=== PATIENT | female | born 1975 | race Caucasian/White ===

== ENCOUNTER 2022-10-04 20:30 | Emergency (ER) | payer BC ==
[~2022-10-04] VITALS: Ht 162.6 cm; Wt 77.1 kg
[2022-10-04 20:40] VITALS: BP 130/74
--- NOTE | 2022-10-04 20:43 | NUR ---
TO LOBBY A/W BED AMBULATORY
[2022-10-04] MEDS ORDERED: KETOROLAC 30 MG/ML VIAL IM ONE (21:00)
[2022-10-04 21:19] LABS: APPEARANCE,URINE CLEAR (CLEAR); BILIRUBIN,URINE NEGATIVE (NEGATIVE); BLOOD, URINE 2+ (NEGATIVE); COLOR,URINE YELLOW (YELLOW); LEUKOCYTE ESTERASE ,URINE NEGATIVE (NEGATIVE); NITRITE, URINE NEGATIVE (NEGATIVE); UGLUCOSE NEGATIVE (NEGATIVE)
--- NOTE | 2022-10-04 21:26 | NUR ---
URINE IN LAB
[2022-10-04 21:37] LABS: RBC,URINE NONE SEEN /HPF (0-5); WBC,URINE NONE SEEN /HPF (0-5)
--- NOTE | 2022-10-04 21:44 | NUR ---
47YR OLD FEMALE BIB SELF C/O ABD PAIN X2DAYS . DENIES V/D. DENIES SOB OR CP. BURNING WITH URINTION . LOWER ABD PAIN NON RADIATING. PT MARTINIQUAIS SPEAKING ONLY. URINE OBTAINED AND SENT TO LAB NKDA NO MED HX
[2022-10-04 22:08] LABS: BASOPHILS # (AUTO) 0.1 K/uL (0.00-0.22); BASOPHILS % (AUTO) 0.5 % (0.0-2.0); EOSINOPHILS # (AUTO) 0.3 K/uL (0-0.4); EOSINOPHILS % (AUTO) 2.8 % (0.0-4.0); HEMATOCRIT 36.4 % (36-48); HEMOGLOBIN 12.4 g/dL (12.0-16.0); LYMPHOCYTES # (AUTO) 2.4 K/uL (2.5-16.5); LYMPHOCYTES % (AUTO) 22.4 % (20.5-51.1); MEAN CORPUSCULAR HEMOGLOBIN 28 pg (27-31); MEAN CORPUSCULAR HGB CONC 34 g/dL (33-37); MEAN CORPUSCULAR VOLUME 81.1 fL (80-94); MONOCYTES # (AUTO) 0.7 K/uL (0.8-1.0); MONOCYTES % (AUTO) 6.7 % (1.7-9.3); NEUTROPHILS # (AUTO) 7.3 K/uL (1.8-7.7); NEUTROPHILS % (AUTO) 67.6 % (42.2-75.2); PLATELET COUNT (AUTO) 243 K/uL (140-450); RED BLOOD CELL COUNT(AUTO) 4.49 MIL/uL (4.20-5.40); RED CELL DISTRIBUTION WIDTH 13.5 % (11.6-13.7); WHITE BLOOD COUNT (AUTO) 10.8 K/uL (4.8-10.8)
[2022-10-04 22:30] LABS: ALBUMIN 3.7 g/dL (3.4-5.0); ANION GAP 11.9 (8-16); CARBON DIOXIDE 29.3 mmol/L (21-32); CREATININE 0.8 mg/dL (0.6-1.3); POTASSIUM 4.2 mmol/L (3.5-5.1); TOTAL BILIRUBIN 0.9 mg/dL (0.0-1.0)
--- NOTE | 2022-10-04 23:10 | NUR ---
PT BACK FROM CT
--- NOTE | 2022-10-05 04:14 | NUR ---
PT ASLEEP WITH HOB ELEVATED. PT IS PAINFREE. PENDING CT RESULTS. PT AWARE. VS WNL.
[2022-10-05] MEDS ORDERED: AMOX-1230 PO (05:33)
[2022-10-05 05:41] VITALS: BP 96/33
--- NOTE | 2022-10-05 05:41 | NUR ---
Patient discharged with v/s stable. Written and verbal after care instructions given and explained. Patient alert, oriented and verbalized understanding of instructions. Ambulatory with steady gait. All questions addressed prior to discharge. ID band removed. Patient advised to follow up with PMD. Rx of AMOX-CLAV given. Patient educated on indication of medication including possible reaction and side effects. Opportunity to ask questions provided and answered.
== END 2022-10-05 05:41 | disposition home or self-care (01) ==
LOC: MED 20:30
DX: R10.10 Upper abdominal pain, unspecified (principal); R30.0 Dysuria
CPT/HCPCS: 36415; 74176; 80053; 81001; 81025; 83690; 85025; 96372; 99285; J1885